=== PATIENT | male | born 1960 | race Caucasian/White ===

== ENCOUNTER 2016-07-03 16:27 | Emergency (ER) | payer MEDICARE ==
[~2016-07-03] VITALS: Ht 185.4 cm; Wt 74.8 kg
--- NOTE | 2016-07-03 17:41 | PHYS DOC ---
Past History Past Medical History: HIV Past Surgical History: No Surgical History Alcohol Use: None Drug Use: Marijuana Adult General Chief Complaint Chief Complaint: PENIS PROBLEM HPI HPI Patient is a 55-year-old male who ambulated into the ED with the complaint that he has a "Cock ring" stuck on his penis. This happened sometime before 6 AM. He was going to come in sooner but he fell asleep. He states he has been able to urinate. Review of Systems Review of Systems Constitutional: Denies fever or chills [] Eyes: Denies change in visual acuity, redness, or eye pain [] HENT: Denies nasal congestion or sore throat [] Respiratory: Denies cough or shortness of breath [] Cardiovascular: Denies chest pain GI: Denies abdominal pain, nausea, vomiting, bloody stools or diarrhea [] : Denies dysuria or hematuria , as in history of present illness Musculoskeletal: Denies back pain or joint pain [] Integument: Denies rash or skin lesions [] Neurologic: Denies headache, focal weakness or sensory changes [] Physical Exam Physical Exam Constitutional: Uncomfortable-appearing male HENT: Normocephalic, atraumatic, bilateral external ears normal, nose normal. [ ] Eyes: conjunctiva normal, no discharge. [] Neck: Normal range of motion : There are [address] with the patient's entire penis and scrotum through the rings, the rings are at the base of the scrotum. The penis and scrotum are edematous but a relatively normal in color and warm. No acute injury otherwise is noted. Skin: Warm, dry, no erythema, no rash. [] Extremities: No tenderness, no cyanosis, no clubbing, ROM intact, no edema. [] Neurologic: Alert and oriented X 3, normal motor function, normal sensory function, no focal deficits noted. [] Current Patient Data Vital Signs Vital Signs Date Time Temp Pulse Resp B/P Pulse Ox O2 Delivery O2 Flow Rate FiO2 07/03/16 17:10 98.4 101 20 98 Room Air EKG EKG [] Radiology/Procedures Radiology/Procedures [] Course & Med Decision Making Course & Med Decision Making Pertinent Labs and Imaging studies reviewed. (See chart for details) 55-year-old male presents with 2 metal rings on his genitalia, at the base of his penis and scrotum. Upon inspection, he does not appear to have circulatory compromise, but there is no way the rings will be able to be removed without cutting them off. I discussed with the patient that we will do our best to cut the rings off while avoiding any damage to his skin, but discussed with him that we will be using tools and there could be skin injury including abrasion or laceration as a result. He is agreeable to commence with the procedure. After some attempts at removal, although the patient had driven himself to the ED, he agreed to take a taxi home for the purpose of giving him IV pain medication. ED nursing staff, Oliver, used a combination of a battery operated ring cutter, a manual ring cutter, and other tools, to cut the rings. At change of shift, the procedure is still ongoing, and I will turn care of the patient over to Dr. Boston. []1944: Pt signed out to me at 1800 shift change. ED staff successfully removed both metal rings, pt with immediate resolution of symptoms has been able to urinate. Pt denies c/o now and is requesting discharge. Examination reveals swollen scrotum with no bluish discoloration, penis appears normal, nontender no palpable deformity. Overall removal was atraumatic although prolonged, pt with only few small abrasions none bleeding or causing symptoms. I discussed no further use of these in future as well as safe sex practices. Pt expresses agreement/understanding with treatment plan. Dragon Disclaimer Dragon Disclaimer This chart was dictated in whole or in part using Voice Recognition software in a busy, high-work load, and often noisy Emergency Department environment. It may contain unintended and wholly unrecognized errors or omissions. Departure Time of Disposition: 19:48 Disposition: HOME, SELF-CARE Diagnosis: penile foreign bodies x 2 Condition: IMPROVED Patient Instructions: Foreign Body-Brief, Safe Sex Referrals: PCP,UNKNOWN (PCP) Additional Instructions: Abstain from using "fixed" similar devices in the future. OTC tylenol as needed. Follow up with your doctor Tuesday for recheck. Return to ED with new or changing symptoms. Departure Departure: Impression: Primary Impression: Penis symptom or sign Disposition: HOME, SELF-CARE Condition: IMPROVED Referrals: PCP,UNKNOWN (PCP) Patient Instructions: Foreign Body-Brief, Safe Sex Additional Instructions: Abstain from using "fixed" similar devices in the future. OTC tylenol as needed. Follow up with your doctor Tuesday for recheck. Return to ED with new or changing symptoms. MADELYN ESCOBAR MD Jul 03, 2016 17:41 JULIA BOSTON DO Jul 03, 2016 19:51
[2016-07-03] MEDS ORDERED: FENTANYL PF 100 MCG/2 ML VIAL. IV PRN (17:45)
[2016-07-03 20:03] VITALS: BP 117/89
== END 2016-07-03 19:58 | disposition home or self-care (01) ==
LOC: ER 16:27
DX: T19.4XXA Foreign body in penis, initial encounter (principal); F12.10 Cannabis abuse, uncomplicated; Z21 Asymptomatic human immunodeficiency virus [HIV] infection status; X58.XXXA Exposure to other specified factors, initial encounter; Y93.89 Activity, other specified; Y99.8 Other external cause status; Y92.89 Other specified places as the place of occurrence of the external cause
CPT/HCPCS: 10120; 96374; 99284; J3010